=== PATIENT | male | born 1950 | race Caucasian/White ===

== ENCOUNTER 2021-06-03 16:30 | Inpatient (IN) | payer MEDICARE, OTHER ==
[~2021-06-03] VITALS: Ht 198.1 cm; Wt 100.5 kg
[2021-06-30] VITALS (12 sets, daily range): BP systolic 132–151; BP diastolic 70–88; PULSE 56–75; TEMP 97.2–98.6
[2021-06-30] MEDS ORDERED: PRILOSEC 20MG20 MG PO (06:01)
[2021-06-30] MEDS ORDERED: LIORESAL 1010 MG/TAB PO (06:01)
[2021-06-30] MEDS ORDERED: NEURONTIN600 MG/TAB PO (06:01)
[2021-06-30] MEDS ORDERED: CIALIS5 MG PO (06:02)
[2021-06-30] MEDS ORDERED: FLOMAX 0.40.4 MG/CAP PO (06:02)
[2021-06-30] MEDS ORDERED: TYLENOL 500MG500 MG PO (06:03)
[2021-06-30] MEDS ORDERED: FLONASEALLERGY NS (06:03)
[2021-06-30] MEDS ORDERED: MUCINEX1200 MG PO (06:03)
[2021-06-30] MEDS ORDERED: VENTOLIN0.09 MG IH (06:04)
[2021-06-30 06:32] LABS: EOS # 0.2 (0.0-0.7); EOS % 3.8 % (0-4.0); GRAN # 1.8 (1.4-6.5); GRAN % 44.6 % (42.2-75.2); HEMATOCRIT 42.8 % (42.0-52.0); HEMOGLOBIN 14.4 g/dl (13.5-18.0); LYMPH # 1.6 (1.2-3.4); LYMPH % 41.1 % (20.0-51.0); MEAN CELL VOLUME 94 fl (80.0-100.0); MEAN CORPUSCULAR HEMOGLOBIN 32 pg (27.0-31.0); MEAN CORPUSCULAR HGB CONC 34 g/dl (33.0-37.0); MONO # 0.4 (0.1-0.6); MONO % 9.2 % (1.7-9.3); PLATELET COUNT 198 K/mm3 (130-400); RED BLOOD COUNT 4.57 M/mm3 (4.20-5.60)
[2021-06-30 06:45] LABS: ALBUMIN 4.3 gm/dL (3.5-5.0); BILIRUBIN,TOTAL 1.5 mg/dL (0.0-1.0); CALCIUM 9.1 mg/dL (8.4-10.2); CREATININE, serum 0.65 (0.66-1.25); POTASSIUM 4.1 mmol/L (3.4-5.0); TOTAL PROTEIN 7.4 gm/dL (6.4-8.2)
--- NOTE | 2021-06-30 06:49 | NUR ---
Patient admitted to room 7 ambulatory accompanied by spouse. Oriented to room. Readied for surgery and consent signed. Spouse in room.
--- NOTE | 2021-06-30 14:00 | NUR ---
Patient alert and oriented, answers questions appropriately. See assessment. Abdomen soft, tender, non distended. Bowel sounds active x4 quads. Lap sites to abdomen with edges well approximated. ELSA drain in place to LLQ, scant amount of serosanguinous drainage in tube. Puentes catheter in place, draining clear ailin urine. Family at bedside. No c/o at this time.
--- NOTE | 2021-06-30 18:00 | NUR ---
[facility] protocol reviewed with patient. Patient requests to visit about hospital stay. Patient verbalizes concerns about providers he has encountered leading up to his current hospital stay and surgery. Patient tearful. Assured patient he is receiving appropriate care, encouraged to express any concerns he has. Patient became more visibly relaxed and confident in his hospital stay. Reminded patient to express any concerns when they arise prior to exiting room.
[2021-07-01 04:36] VITALS: BP 132/73; PULSE 66; TEMP 98.4
--- NOTE | 2021-07-01 06:00 | NUR ---
Awake, alert, oriented x 4, able to make all needs known, c/o abdomen pain - prn oxycodone given per mar with good effect, talkative, duran draining yellow urine at this time, updated patient on plan of care
[2021-07-01 07:22] LABS: HEMATOCRIT 39.7 % (42.0-52.0); HEMOGLOBIN 13.5 g/dl (13.5-18.0)
[2021-07-01 07:48] LABS: CALCIUM 8.4 mg/dL (8.4-10.2); CREATININE, serum 0.65 (0.66-1.25); POTASSIUM 4.3 mmol/L (3.4-5.0)
[2021-07-01 07:57] VITALS: BP 133/79; PULSE 67; TEMP 97.3
--- NOTE | 2021-07-01 11:00 | NUR ---
This morning when went in to do patients assessment, he stated that he was having sharp pain to his upper abdomen and it was taking his breath away. Explained giving him a different medication that Dr Harrison ordered. He has had tylenol, toradol and roxicodone since start of shift. He stated nothing seems to help. He also stated he is not able to pass gas. He has been up walking in the hallways. He stated that he is worried about getting addicated to pain medications and did not want anything stronger. No other changes at this time. Call light within reach.
[2021-07-01 11:25] VITALS: BP 120/84; PULSE 72; TEMP 97.7
--- NOTE | 2021-07-01 13:55 | NUR ---
First visit from the auto mechanic supervisor. No needs right now.
[2021-07-01 16:02] VITALS: BP 124/80; PULSE 74; TEMP 97.5
--- NOTE | 2021-07-01 18:30 | NUR ---
Patient has been up in the chair most the day. He continues to state he is in pain and nothing seems to be helping. He has walked in the hallways several times. Denies nausea. He has not passed flatus yet. He wanted something to help him pass flatus or have a bowel movement, Dr Harrison ordered some milk of magnesium and suppositories. No other changes at this time. Call light within reach.
[2021-07-01 19:56] VITALS: BP 122/82; PULSE 72; TEMP 98.9
[2021-07-02 00:31] VITALS: BP 135/81; PULSE 63; TEMP 97.6
[2021-07-02 04:05] VITALS: BP 138/82; PULSE 61; TEMP 97.5
[2021-07-02 07:17] VITALS: BP 119/68; PULSE 70; TEMP 98
--- NOTE | 2021-07-02 08:45 | NUR ---
Pysician ordered drain removal JP1 removed per protocol stich cut and pulled drain pulled pt. tolerated well and covered area with sterile 2x2 and sterile opsite
--- NOTE | 2021-07-02 09:20 | NUR ---
Pt has a student nurse caring for him this am. ELSA drain pulled from L abdomen, dressing has some drainage present to dressing at this time. Pt has a lot less discomfort with the removal of the ELSA drain. Reports he does not feel he needs any oxycodone at this time. Discussed pain control with patient he verbalizes understanding. Deloris KAUR. IVF infusing to left hand without issues. Call light within reach.
[2021-07-02 10:52] VITALS: BP 112/74; PULSE 69; TEMP 98
[2021-07-02 12:53] VITALS: BP 119/65; PULSE 71; TEMP 98.9
--- NOTE | 2021-07-02 14:04 | NUR ---
Sahra BANUELOS provided care from [id number] relayed cares provided to primary nurse hand off report given
--- NOTE | 2021-07-02 14:34 | NUR ---
muffle worker met with patient to discuss discharge plan. Patient lives at home with his Lyla in [place]. Patient reports that he is fully independent with his activities of daily living and does not use any medical equipment to assist with mobility. PCP is Dr. Mcginnis in [place]. Patient reports he has been unhappy with the care he is getting from PCP so has been going to the office PA as of late. Utilizes [facility] in [place] for perscriptions. States he and his do have a DPOA established already. Planning on returning home with no concerns. *Discharge plan: Home*
[2021-07-02 16:02] VITALS: BP 121/74; PULSE 79; TEMP 98.1
--- NOTE | 2021-07-02 17:10 | NUR ---
Discharge paperwork and instructions reviewed with patient and his . Puentes catheter care discussed. All questions answered at this time. IV removed previously by student. Pt wheeled out of facility at this time.
== END 2021-07-02 17:12 | disposition home or self-care (01) | DRG 708 ==
LOC: SURG 06-30 05:14 → INPTSU 06-30 05:14 → SURG 06-30 07:30
PROVIDERS: Registered Nurse; ADMIT Urology
PROC: 07BC4ZZ Excision of Pelvis Lymphatic, Percutaneous Endoscopic Approach (ICD-10-PCS; 2021-06-30)
PROC: 8E0W4CZ Robotic Assisted Procedure of Trunk Region, Percutaneous Endoscopic Approach (ICD-10-PCS; 2021-06-30)
PROC: 0VT04ZZ Resection of Prostate, Percutaneous Endoscopic Approach (ICD-10-PCS; principal; 2021-06-30 07:30)
DX: C61 Malignant neoplasm of prostate (principal); R59.1 Generalized enlarged lymph nodes; J45.909 Unspecified asthma, uncomplicated; G89.29 Other chronic pain; M19.90 Unspecified osteoarthritis, unspecified site; G62.9 Polyneuropathy, unspecified
CPT/HCPCS: A4314; A9284; J0330; J0690; J1100; J1650; J1885; J2405; J2704; J3010; J7030; J7120